=== PATIENT | female | born 1955 | race Caucasian/White ===

== ENCOUNTER 2016-07-27 15:20 | Inpatient (IN) | payer OTHER ==
--- NOTE | 2016-07-27 15:44 | EDPHY ---
H & P Stated Complaint: depression not suicidal off meds-hx depression n bipolar Source: Patient - Personal History Current Tetanus/Diphtheria Vaccine: Unsure Current Tetanus Diphtheria and Acellular Pertussis (TDAP): Unsure - Medical/Surgical History Hx Asthma: No Hx Chronic Respiratory Disease: No Hx Diabetes: No Hx Cardiac Disease: No Hx Renal Disease: No Hx Cirrhosis: No Hx Alcoholism: No Hx HIV/AIDS: No Hx Splenectomy or Spleen Trauma: No Other PMH: depression. suicide attempt 07/01 - Social History Smoking Status: Never smoked HPI/ROS: HPI CHIEF COMPLAINT: Depression HISTORY OF PRESENT ILLNESS: This patient very pleasant 61-year-old female, significant past medical history for depression and bipolar disorder, presents emergency room with her for worsening depression. Patient states that she had a recent suicide attempt with taking benzos and alcohol few weeks ago she was hospitalized at [facility] for this 5 days. She started a new medication for her Prozac. She is to be on lithium and Tegretol no longer is. She tells me that the Prozac is causing her to have worsening depression feeling anxious. She presents emergency room with her at bedside and would like to be hospitalized inpatient psychiatrically for worsening depression. No current SI. Upon arrival here in emergency room she has a flat affect, appears depressed. Past Medical History: Bipolar disorder, depression Past Surgical History: No recent surgery Social History: Denies daily use of drugs alcohol tobacco products, retired, is a physician at bedside. Family History: Noncontributory ROS REVIEW OF SYSTEMS: A comprehensive 10 point review of systems is otherwise negative aside from elements mentioned in the history of present illness. Exam Constitutional appears well nontoxic, triage nursing summary reviewed, vital signs reviewed, awake/alert. Eyes normal conjunctivae and sclera, EOMI, PERRLA. HENT normal inspection, atraumatic, moist mucus membranes, no epistaxis, neck supple/ no meningismus, no raccoon eyes. Respiratory clear to auscultation bilaterally, normal breath sounds, no respiratory distress, no wheezing. Cardiovascular rate normal, regular rhythm, no murmur, no edema, distal pulses normal. Gastrointestinal soft, non-tender, no rebound, no guarding, normal bowel sounds, no distension, no pulsatile mass. Genitourinary no CVA tenderness. Musculoskeletal no midline vertebral tenderness, full range of motion, no calf swelling, no tenderness of extremities, no meningismus, good pulses, neurovascularly intact. Skin pink, warm, & dry, no rash, skin atraumatic. Neurologic awake, alert and oriented x 3, AAOx3, moves all 4 extremities equally, motor intact, sensory intact, CN II-XII intact, normal cerebellar, normal vision, normal speech. Psychiatric flat affect, depressed Heme/Lymph/Immune no lymphadenopathy. Differential Diagnosis: Includes but is not limited to in a particular order, severe depression, bipolar disorder with depression, medication adverse effect, worsening depression on Prozac x3 weeks, need for inpatient psychiatric hospitalization for stabilization of mood disorder depression. Medical Decision Making: Plan for this patient IV establishment, blood draw for medical clearance, IV Ativan for acute anxiety. Patient is voluntary at this time no need for M1 hold. Not suicidal. Wants help. Will need mental health evaluation. Re-evaluation: 1951: Patient has been evaluated by KIRK Obregon, recommend inpatient psychiatric hospitalization. Patient voluntary. Reason for admission depression severe. patient signed over to Dr. Barrera at 9pm. Plan for admission for Depression. ( Chuckie Melgar) Constitutional: Initial Vital Signs Temperature (C) 36.5 C 07/27/16 15:25 Heart Rate 109 H 07/27/16 15:25 Respiratory Rate 16 07/27/16 15:25 Blood Pressure 154/91 H 07/27/16 15:25 O2 Sat (%) 96 07/27/16 15:25 O2 Delivery Mode Room Air Allergies/Adverse Reactions: No Known Allergies Allergy (Unverified 07/27/16 15:23) Home Medications: Medication Instructions Recorded Levothyroxine [Synthroid 50 mcg 50 mcg PO DAILY06 07/27/16 (*)] MIRTAZAPINE [Remeron 7.5 mg] 7.5 mg PO HS 07/27/16 OLANZapine [Zyprexa] 10 mg PO HS 07/27/16 hydrOXYzine HCL [Hydroxyzine HCl] 50 mg PO HS PRN 07/27/16 Medical Decision Making ED Course/Re-evaluation: 9:20 p.m. patient has been evaluated and placed on an M1 hold. They will begin looking for psychiatric placement. 11:00 p.m. care transferred to Dr. Flores. (Edward Barrera) [address] Barrera pending transfer to [address] [place] [address]. 0230 patient has been accepted to [address] [place] [address] ej michel. I have completed the EMTALA. (Gordo Flores) - Data Points Laboratory Results: Laboratory Results 07/27/16 16:10 07/27/16 16:10 07/27/16 07/27/16 07/27/16 17:05 16:10 16:10 WBC 7.95 10^3/uL 10^3/uL (3.80-9.50) RBC 4.53 10^6/uL 10^6/uL (4.18-5.33) Hgb 14.5 g/dL g/dL (12.6-16.3) Hct 39.5 % % (38.0-47.0) MCV 87.2 fL fL (81.5-99.8) MCH 32.0 pg pg (27.9-34.1) MCHC 36.7 g/dL g/dL (32.4-36.7) RDW 12.7 % % (11.5-15.2) Plt Count 346 10^3/uL 10^3/uL (150-400) MPV 9.6 fL fL (8.7-11.7) Neut % (Auto) 61.5 % % (39.3-74.2) Lymph % (Auto) 25.8 % % (15.0-45.0) [place] % (Auto) 11.8 % % (4.5-13.0) Eos % (Auto) 0.3 % L % (0.6-7.6) Baso % (Auto) 0.1 % L % (0.3-1.7) Nucleat RBC Rel Count 0.0 % % (0.0-0.2) Absolute Neuts (auto) 4.89 10^3/uL 10^3/uL (1.70-6.50) Absolute Lymphs (auto) 2.05 10^3/uL 10^3/uL (1.00-3.00) Absolute Monos (auto) 0.94 10^3/uL H 10^3/uL (0.30-0.80) Absolute Eos (auto) 0.02 10^3/uL L 10^3/uL (0.03-0.40) Absolute Basos (auto) 0.01 10^3/uL L 10^3/uL (0.02-0.10) Absolute Nucleated RBC 0.00 10^3/uL 10^3/uL (0-0.01) Immature Gran % 0.5 % % (0.0-1.1) Immature Gran # 0.04 10^3/uL 10^3/uL (0.00-0.10) Sodium 130 mEq/L L mEq/L (134-144) Potassium 3.3 mEq/L L mEq/L (3.5-5.2) Chloride 97 mEq/L mEq/L (97-110) Carbon Dioxide 18 mEq/l L mEq/l (22-31) Anion Gap 15 mEq/L mEq/L (8-16) BUN 5 mg/dL L mg/dL (7-23) Creatinine 0.5 mg/dL L mg/dL (0.6-1.0) Estimated GFR > 60 Glucose 178 mg/dL H mg/dL (70-100) Calcium 9.9 mg/dL mg/dL (8.5-10.4) Salicylates < 1.0 mg/dL L mg/dL (2.0-20.0) Urine Opiates Screen NEGATIVE (NEGATIVE) Acetaminophen < 10 mcg/mL L mcg/mL (10.0-30.0) Urine Barbiturates NEGATIVE (NEGATIVE) Ur Phencyclidine Scrn NEGATIVE (NEGATIVE) Ur Amphetamine Screen NEGATIVE (NEGATIVE) U Benzodiazepines Scrn NEGATIVE (NEGATIVE) Urine Cocaine Screen NEGATIVE (NEGATIVE) U Marijuana (THC) Screen NEGATIVE (NEGATIVE) Ethyl Alcohol < 10 mg/dL mg/dL (0-10) Medications Given: Discontinued Medications Sodium Chloride (Ns) 1,000 mls @ 0 mls/hr IV ONCE ONE PRN Reason: Wide Open Stop: 07/27/16 16:37 Last Admin: 07/27/16 16:42 Dose: Not Given Lorazepam (Ativan Injection) 1 mg IVP EDNOW ONE Stop: 07/27/16 15:52 Last Admin: 07/27/16 16:18 Dose: Not Given Lorazepam (Ativan) 1 mg PO ONCE ONE Stop: 07/27/16 15:57 Last Admin: 07/27/16 16:17 Dose: 1 mg Departure - Departure Disposition: [facility] IP Clinical Impression: Depression Qualifiers: Depression Type: unspecified Qualified Code(s): F32.9 - Major depressive disorder, single episode, unspecified Condition: Fair Referrals: GRACE BURKETT [Primary Care Provider] - As per Instructions
[2016-07-27] MEDS ORDERED: LORazepam 2 MG/ML INJ IVP ONE (15:51)
[2016-07-27] MEDS ORDERED: LORazepam 1 MG TAB PO ONE (15:56)
[2016-07-27 16:25] LABS: % IMMATURE GRANULYOCYTES 0.5 % (0.0-1.1); ABSOLUTE IMMATURE GRANULOCYTES 0.04 10^3/uL (0.00-0.10); ADD DIFF? NO; ADD MORPH? NO; ADD SCAN? NO; ATYPICAL LYMPHOCYTE FLAG 20 (0-99); FRAGMENT RBC FLAG 0 (0-99); HEMATOCRIT 39.5 % (38.0-47.0); HEMOGLOBIN 14.5 g/dL (12.6-16.3); LEFT SHIFT FLG 0 (0-99); LIPEMIA HEMOLYSIS FLAG 90 (0-99); MEAN CELL HEMOGLOBIN CONCENTR. 36.7 g/dL (32.4-36.7); MEAN CELL VOLUME 87.2 fL (81.5-99.8); MEAN PLATELET VOLUME 9.6 fL (8.7-11.7); PLATELET CLUMPS FLAG 0 (0-99); PLATELET COUNT 346 10^3/uL (150-400); RED BLOOD CELL COUNT 4.53 10^6/uL (4.18-5.33); RED CELL DISTRIBUTION WIDTH 12.7 % (11.5-15.2)
[2016-07-27 16:30] LABS: ANION GAP 15 mEq/L (8-16); CALCIUM 9.9 mg/dL (8.5-10.4); CARBON DIOXIDE 18 mEq/l (22-31); CHLORIDE 97 mEq/L (97-110); CREATININE 0.5 mg/dL (0.6-1.0); ETHANOL SERUM < 10 mg/dL (0-10); GLOMERULAR FILTRATION RATE > 60; GLUCOSE 178 mg/dL (70-100); POTASSIUM 3.3 mEq/L (3.5-5.2); SALICYLATE < 1.0 mg/dL (2.0-20.0); SODIUM 130 mEq/L (134-144)
[2016-07-27] MEDS ORDERED: NS 1,000 ML IV ONE (16:36)
[2016-07-28] MEDS ORDERED: NICOTINE POLACRILEX 2 MG GUM B PRN (02:20)
[2016-07-28] MEDS ORDERED: ACETAMINOPHEN 325 MG TAB PO PRN (02:20)
[2016-07-28] MEDS ORDERED: MAGNESIUM HYDROXIDE 30 ML UDCUP PO PRN (02:20)
[2016-07-28] MEDS ORDERED: MAG HYDROX/AL HYDROX/SIMETH 30 ML UDCUP PO PRN (02:20)
[2016-07-28] MEDS ORDERED: OLANZapine DISINTEGR 10 MG TAB ONE (04:13)
[2016-07-28] MEDS ORDERED: LORazepam 0.5 MG TAB ONE (04:13)
[2016-07-28] MEDS: LORazepam 0.5 MG TAB PO PRN ×2 (04:28→20:15)
[2016-07-28] MEDS: OLANZapine DISINTEGR 10 MG TAB PO PRN ×2 (04:28→20:15)
--- NOTE | 2016-07-28 15:22 | BCON ---
[f rep st] BEHAVIORAL HEALTH CONSULTATION INTERNAL MEDICINE CONSULTATION DATE OF CONSULTATION: 07/28/2016 REFERRING PHYSICIAN: William Chowdary MD REASON FOR REFERRAL: Medical clearance for inpatient behavioral health stay. HISTORY OF PRESENT ILLNESS: The patient came to the emergency department yesterday with worsening depression. She had had a recent suicide attempt several weeks prior with benzodiazepines and alcohol and had been hospitalized at [facility]. She was begun on Prozac and was feeling anxiety and worsening depression. She was evaluated by the mental health team and admitted for further psychiatric care. She currently is without any acute complaints other than feeling fatigued since she was up very late last night. PAST MEDICAL HISTORY: 1. Depression with suicide attempt on 07/01/2016. 2. Hypothyroidism. 3. Hyponatremia when she was treated with carbamazepine. PAST SURGICAL HISTORY: She has had a hysterectomy. MEDICATIONS: Prior to admission. It is unclear if she has been compliant. She reported that she was tried on oxcarbazepine last week. Her most recent home medication list is as follows 1. hydroxyzine 50 mg at bedtime p.r.n. 2. Olanzapine 10 mg p.o. at bedtime. 3. Mirtazapine 7.5 mg p.o. at bedtime. 4. Levothyroxine 50 mcg p.o. daily. ALLERGIES: There are no known drug allergies. SOCIAL HISTORY: She is . She lives with her . She has adult children. She has worked in the past as a counselor. She is a nonsmoker and uses alcohol occasionally. FAMILY HISTORY: Noncontributory. REVIEW OF SYSTEMS: She denies thirst, dry mouth, excessive water intake or excessive urination. She denies headache, vision changes, weakness, numbness or tingling of the extremities. She denies chest pain or palpitations, fevers or chills, recent weight change, nausea, vomiting, constipation or diarrhea. Otherwise, a 10-point review of systems is negative. PHYSICAL EXAM: VITAL SIGNS: Blood pressure is 131/58, heart rate this morning at 4:10 a.m. was 109, respiratory rate was 14, oxygen saturation was 94% on room air, temperature was 36.5 degrees centigrade. Her weight is 70.3 kg for a body mass index of 30.3. GENERAL: This is an overweight-appearing woman who appears her chronologic age, cooperative and in no acute distress. HEENT: Extraocular movements are intact. Pupils are equal, round, and reactive to light. Mucous membranes are moist. Dentition is in good condition. NECK: Supple. HEART: There is regular rate and rhythm with no murmurs, rubs, or gallops. LUNGS: Clear to auscultation bilaterally. ABDOMEN: Soft, nontender , nondistended with normoactive bowel sounds. EXTREMITIES: There is no cyanosis, clubbing, or edema. NEUROLOGIC: She is alert and oriented x3. Cranial nerves 2-12 are grossly intact. There is no focal weakness and sensation is intact to light touch. LABORATORY STUDIES: Drawn in the emergency department. CBC was overall within normal limits. Serum chemistry revealed a low sodium and a low potassium at 130. and 3.3. Carbon dioxide was also low at 18. BUN and creatinine were low at 5 and 0.5. Glucose was elevated at 178, but this was at 1610 and was likely not fasting. Toxicology screen in the serum was negative for salicylates, acetaminophen or ethyl alcohol and in the urine was negative for any substances of abuse. ASSESSMENT/RECOMMENDATIONS: 1. Mental health issues. Pending further evaluation and management per Psychiatry and the mental health team. 2. Hyponatremia of unclear etiology. Possibly a continuing effect of her oxcarbazepine therapy with which she was treated last week. I will repeat a basic metabolic profile in the morning as well as other tests to investigate the etiology of the low sodium with a urine and serum osmolarity and a urine sodium. 3. Hypothyroidism. TSH was checked during her recent stay at [facility] and was normal, so she is on an appropriate dose of thyroid hormone replacement. 4. I see no medical contraindications to the patient's continued stay in the inpatient behavioral health unit or to any psychiatric medications or procedures. Thank you very much for including me in the care of this patient and please do not hesitate to contact me or the hospitalist service should there be need for further medical evaluation. /[id number]/MODL MTDD
[2016-07-29] MEDS: LEVOTHYROXINE 75 MCG TAB PO SCH (09:08)
--- NOTE | 2016-07-29 09:44 | BAPA ---
[f rep st] ADMISSION PSYCHIATRIC ASSESSMENT PATIENT IDENTIFICATION: The patient presents as a 61-year-old, , white female, who lives with her ; she is a mother of 2 adult children; she is retired; she is currently an identified psychiatric outpatient in the community , followed by a prescriber, Suzie Medina and a psychotherapist; she was admitted to [address] [place] [address] for complaints of a depressive crisis including suicidal ideation; she was deemed to be high risk for self-harm and admitted to [address] [place] [address] on an M1 hold. CHIEF COMPLAINT: "I just got out of [facility] and I'm feeling worse; I feel as if I am going to jump out of my skin and I can't keep living like this any more," stated to TLC in the emergency room prior to admission. HISTORY OF PRESENT ILLNESS: The patient reports a chronic history of a primary Mood Disorder. She was diagnosed 11 years ago as suffering from a Bipolar Disorder, Type 1. The patient also has a history of long-standing alcohol abuse. Details of her past history as referenced below. Patient received a second DUI 2 years ago at age 59. Since that time, she has been abstinent, attending individual and group sobriety treatment, court ordered. She sees a jailer/training officer monthly, and provides 8 random urines per month, as requested. In parallel, the patient has continued medication management treatment from her [facility] prescriber The patient discontinued her long- standing Seroquel regimen at 300 mg h.s., approximately 1 year ago, secondary to developing bilateral ankle tremors, question restless legs syndrome, ? TDK. She was tried on multiple medications, including lithium which created GI side effects, Tegretol which lowered her sodium, and Lamictal which she tolerated, but was discontinued at [facility] where she was hospitalized approximately 1 month ago following a suicide attempt by overdose. The patient states she also has tried multiple other medications including Depakote and Abilify among others. Over the past 2 years, while patient has been sober, she has continued to experience primary mood instability with a preponderance of depression over the last 18 months. Her syndromal depression did reach crisis proportions, resulting in her first suicide attempt by overdosing on Klonopin and alcohol. The patient states this was the only alcohol she has used in the past 2 years. She was found by her physician in a drowsy, but arousable state after the overdose. She was medically cleared in a local emergency room and sent on to [facility] for 5-week inpatient stay. She reports that her Lamictal was discontinued, and she was placed on Prozac and Trileptal. Following discharge 3 weeks ago, the patient states her depression was unimproved at discharge, and has worsened over the past 3 weeks. Her prescriber discontinued the Trileptal because of a diminished sodium level. The patient discontinued her Prozac 3 days prior to this admission as she was feeling intensification of her depressive symptoms including increased anxiety. The patient self-referred to the emergency room in the company of her , as she was feeling a crisis of despair, and return of suicidal thinking. In the emergency room, the patient was medically cleared. Emergency room physician identified constricted and flattened affect, as well as acutely dysphoric mood on an otherwise unremarkable physical exam. She also presented with acute anxiety, and was given Ativan 1 mg IV for calming affect. Lab screens included chemistries, CBC, toxic screen, and blood alcohol level. Significant findings included diminished BUN at 5, elevated glucose 178, diminished CO2 at 18, diminished sodium at 130, and decreased potassium at 3.3. She was seen in consultation by [facility] and presented as anxious, oriented x4, cooperative, and conversant. She described the persistent suicidal ideation, as well as provided some of the database in this narrative as reference. She was deemed to be at acute risk of self-harm and unable to manage safely in the community. She was sent on for admission to on an M1 hold. PSYCHIATRIC HISTORY: Patient's initial psychiatric workup occurred in the context of a dual service rehab program she attended after her first DUI at age 50. That workup concluded the patient suffered from a Bipolar Disorder, Type 1. She was begun on Seroquel dosing, which was continued for the next 10 years prescribed by her PCP, as referenced above. She also engaged in psychotherapy on different occasions over the 9 years following the first conviction for DUI. She has not engaged in psychotherapy for the past 2 years, but has continued medication management services. After the onset of bilateral ankle tremors 2 years ago, PCP referred the patient to her psychiatric nurse practitioner. Seroquel was then discontinued, and the patient placed on a medley of psychiatric medications as referenced in the present illness. Most recently, the patient took prescribed Prozac and Trileptal, which was begun during the inpatient course in [facility]. Both of these medications were discontinued prior to this admission, as referenced in the HPI. MEDICAL HISTORY: No active medical problems. S/P hypothyroidism. ALLERGIES: Patient has no known medication, food, or environmental allergies. REVIEW OF SYSTEMS: Negative medical review of systems. SUBSTANCE ABUSE HISTORY: The patient was born into a family origin in which her father was actively alcoholic. She states she took her first drink at age 13, but drank with control until her mid 30s. She states she and her third were social drinkers. However, she states her intake gradually increased to the level of drinking to intoxication most days of the week into her 40s. Following her first DUI conviction at age 50, the patient completed a 28-day rehab program and then engaged in court-ordered outpatient sobriety groups and individual counseling. She states she remained abstinent from ages 50 to 54. The patient then felt she could drink with control, but again her drinking pattern gradually progressed to an addictive level. Her second DUI occurred at age 59. She again engaged in a court-ordered outpatient sobriety treatment consisting of treatment groups and individual meetings, one of each daily. She has remained abstinent through to the present time, other than for the overdose on alcohol and Klonopin 4 weeks ago in a suicide attempt. The patient also meets with a jailer/training officer monthly, as directed by the Court. LEGAL HISTORY: Two DWIs at ages 50 and 59, as referenced above. Currently on probation following the second DUI conviction. PERSONAL HISTORY/FAMILY HISTORY: The patient was born into a family origin consisting of parents and 2 older brothers. The patient's father was actively alcoholic during patient's childhood and adolescence. While she denied a history of trauma or abuse, she does state family life was constrained for all family members including her because of father's severe alcoholism. The patient left home at age 15 to a 17-year-old, who had enlisted in the [employer]. She states she was motivated to leave living in the home with her alcoholic father. The patient obtained her GED while living with her enlisted in [place]. The marriage lasted 2 years, and ended in divorce. Patient states this was because her developed another relationship to a woman he eventually . Patient procreated her first child at age 16 and became a single parent at time of divorce. She states life was stable as she enjoyed parenting, as well as working and living in an independent manner. She for the second time at age 22, and remained for 5 years, again ending the marriage in divorce secondary to her 's infidelity. She did have her second child at age 24 during this marriage. She again became a single parent with 2 children.and again worked successfully as well. As stated , she enjoyed raising her children. She for the third time at age 29. This marriage has continued to the present time. She states her is her best friend and the marriage has been very successful. He is a physician, who has specialized after internal medicine training to become an addictions specialist, works full-time for an agency in [place] providing methadone and other treatment services to addictive patients. Patient went to college part-time and obtained her BA and MA degrees at the [employer]. Her graduate degree was in counseling. 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 Patient retired from all employment 2 years ago, likely secondary to her psychiatric and alcoholic instability. ADMISSION MENTAL STATUS EXAM: The patient presents as an adult female, looking her stated age. She is well-kempt, has normal gait and station. She engages cooperatively and is conversant during the first session. Her mood state is moderately dysphoric, range of affect contracted and expression of affect constricted. Her thought process is reality focused with no evidence for psychosis. The patient denies current suicidal ideation, and expresses a positive attitude about her being admitted as an inpatient. She is openly disclosing and provides most of the details referenced in the evaluation. She appears to be of average intelligence referencing her vocabulary and language syntax. She is alert and oriented x4. The patient's impulse control is intact , judgment fair, and insight fair, as presented in the session. Her thought process is linear and goal-focused. She describes her syndromal and treatment history, but offers little insight on circumstantial or dynamic stressors for her depression. She states her depression has been preponderant, and increasingly so over the last 18 months. Patient's ADL functions are intact and appropriate for her age. Session focuses on staging her mental status, obtaining a syndromal and treatment history, and overview of lifelong history. She states all her family relationships are well and stable, including her 2 children, and her relationship to her . FORMULATION: The patient presents as a 61-year-old, , white female with chronic problems associated with primary mood instability diagnosed as Bipolar Disorder, type 1, eleven years ago. Patient also has a chronic history for addictive use of alcohol. She has been sober for the past 2 years following a second DUI conviction at age 59. She has experienced a preponderance of syndromal depression for 18 months, which has intensified through to the current time. She has attempted suicide once on July 01 by overdosing on Klonopin and alcohol. She completed a brief inpatient hospitalization, her first hospitalization, at [facility], discharging 3 weeks ago on Prozac and Trileptal. Both of these medications have been discontinued as ineffective , as well as possibly contributing to her low sodium (130), and akathisia. Inpatient treatment will focus on expediting history of her medication responsiveness, as well as engaging her actively via the care plan to utilize the milieu and group therapies. Will expand the collateral base by contacting her prescriber and . We will search for the presence of any dynamic or circumstantial stressors that might be related to this 18 month course of worsening depression. Primary goals will include stabilizing her mental status sufficient for discharge, formulating a diagnosis to inform a more definitive discharge plan. ADMISSION DIAGNOSTIC IMPRESSION: [place] I: 1. Bipolar Disorder, type 1: Extended depressive crisis including a suicide attempt by overdose 4 weeks ago and present exacerbation. 2. Alcohol Use Disorder: Chronic history; abstinent for the past 2 years following driving under the influence conviction and court-ordered treatment. [place] II: Deferred. [place] III: No active medical problems. S/P hypothyroidism, stable on Synthroid 75 mcg daily. [place] IV: Inadequate response to psychoactive medications; rule out dynamic and/ or circumstantial stressors. [place] V: Admission Global Assessment of Functioning 35. INITIAL TREATMENT PLAN: 1. Nursing: Completed admission assessment; monitor patient for safety; reinforce compliance with cares and medications; orient patient to the unit milieu and group program, and encourage participation. 2. Psychiatry: Completed admission assessment; provide daily E/M contacts, who complete diagnostic formulation, assess and manage psychoactive medication needs, provide reintegrated psychotherapeutic contacts, ally patient to definitive discharge plan with links in place at discharge. 3. Clinical Coordinator: Daily visits for intake in data expansion including contact of relevant collaterals; identify discharge resources for patient links for patient to follow up with links in place at discharge. 4. Admission medical consultation: Pending. 5. Medications: Will contact [facility] prescriber to clarify medication response history prior to establishing a first phase medication trial. 6. Prioritized inpatient goals: Stabilize mental status sufficient for discharge: Complete diagnostic workup to inform definitive discharge plan; link patient to discharge resources and ally patient with followup treatment post discharge. /[id number]/MODL MTDD
[2016-07-29 11:30] LABS: ANION GAP 10 mEq/L (8-16); CALCIUM 9.7 mg/dL (8.5-10.4); CARBON DIOXIDE 24 mEq/l (22-31); CHLORIDE 103 mEq/L (97-110); CREATININE 0.7 mg/dL (0.6-1.0); GLOMERULAR FILTRATION RATE > 60; GLUCOSE 63 mg/dL (70-100); POTASSIUM 4.4 mEq/L (3.5-5.2); SODIUM 137 mEq/L (134-144)
--- NOTE | 2016-07-29 13:55 | SOAPPROG ---
TONY Progress Note Assessment/Plan: Assessment: Plan: 07/29/16 09;15 DAY UPDATE/EXAM: Nursing reports pt slept 4-5 hours, is observably depressed but denies SI, is c/w cares and meds and has a presence in the milieu and attending groups selectively/ on direct exam pt expands the data base regarding sx and rx history a/w psychiatric and sobriety issues; responds well to clarification and support in the session; dysphoric mood and constrict/blunted affect present ; pt denies current SI on inquiry; cannot give telephone number for prescriber ASSESSMENT/PLAN: residual depressive acuity; allying with initial therapeutic engagement/ am trying to contact pt's community prescriber before initiating medication trial; CP d/w Nursing in Rounds Objective: Vital Signs Temp Pulse Resp BP Pulse Ox 36.5 C 112 H 12 126/64 H 93 07/29/16 06:00 07/29/16 06:00 07/29/16 06:00 07/29/16 06:00 07/29/16 06:00 Laboratory Results 07/29/16 06:25 ICD10 Worksheet Patient Problems: Problems Problem Status Onset Depression Acute
[2016-07-30] MEDS: LEVOTHYROXINE 75 MCG TAB PO SCH (06:07)
--- NOTE | 2016-07-30 13:00 | SOAPPROG ---
TONY Progress Note Assessment/Plan: Assessment: Plan: 07/29/16 09;15 UPDATE/EXAM: Nursing reports pt slept 4-5 hours, is observably depressed but denies SI, is c/w cares and meds and has a presence in the milieu and attending groups selectively/ on direct exam pt expands the data base regarding sx and rx history a/w psychiatric and sobriety issues; responds well to clarification and support in the session; dysphoric mood and constrict/blunted affect present ; pt denies current SI on inquiry; cannot give telephone number for prescriber ASSESSMENT/PLAN: residual depressive acuity; allying with initial therapeutic engagement/ am trying to contact pt's community prescriber before initiating medication trial; CP d/w Nursing in Rounds 07/30/16 13:30 day UPDATE/EXAM: Nursing reports pt slept better but continues to c/o brkthru anxiety and dysphoria; is c/w meds and cares and is visible in milieu and attending groups/ on direct exam pt is cooperative and conversant; does evidence anxiety with visible motoric agitation; facies depressed and mood dysphoric; denies SI but does complain of significant affective pain; meds discussed with implementation as referenced. 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 He was unable to identify any dynamic stessors but also did not appear to be psychologically minded but is loving and supportive to his . ASSESSMENT/PLAN: residual anxious/depressive acuity/ will start pt on [place] ER as she was not exposed to long-acting [place] in previous outpt trial when she responded but stopped with GI side-effects; will also begin trial of Zyprexa for anxiolytic and antidepressant effects which apparently did occur in previous trial; will use Ativan prn short-term for anxiolytic relief as needed - see current orders; CP d/w Nursing in Rounds Objective: Vital Signs Temp Pulse Resp BP Pulse Ox 36.7 C 52 L 16 146/83 H 95 07/30/16 06:00 07/30/16 06:00 07/30/16 06:00 07/30/16 06:00 07/30/16 06:00 Laboratory Results 07/29/16 06:25 ICD10 Worksheet Patient Problems: Problems Problem Status Onset Depression Acute
[2016-07-30] MEDS ORDERED: LORazepam 1 MG TAB PO ONE (13:28)
[2016-07-30] MEDS: OLANZapine 2.5 MG TAB PO SCH ×2 (16:01→20:03)
[2016-07-30] MEDS: LITHIUM CARBONATE ER 300 MG TAB PO SCH (20:03)
[2016-07-31] MEDS: LORazepam 0.5 MG TAB PO PRN ×3 (07:02→19:10)
[2016-07-31] MEDS: OLANZapine 2.5 MG TAB PO SCH ×3 (08:01→19:10)
[2016-07-31] MEDS: LEVOTHYROXINE 75 MCG TAB PO SCH (10:54)
--- NOTE | 2016-07-31 13:10 | SOAPPROG ---
SOAP Progress Note Assessment/Plan: Assessment: 61yo CF with hx BMD and SI 07/31/16 13:04 per staff, slept 9.5 hrs. attending groups. on interview, pt reports no s/e to recent med changes. tolerating [place] ER and low dose zyprexa well. states responded well to these in past and had not had any GI distress with [place] in ER formulation which she started last night. Skipped art group today, "it's the 1st one I skipped, but I really don't like the art group". Otherwise reports attending groups. No physical c/o. MSE: casually dressed, good eye contact, cooperative bx, nml speech rate/vol. mood "fine", affect restricted but appropriate, denied any SI or psychotic sxs. no thoughts to harm others. no hallucinations. thoughts linear and goal- directed. i/j both seem intact. Plan: cont current meds. signed in vol yesterday. d/c suicide precautions. Objective: Vital Signs Temp Pulse Resp BP Pulse Ox 36.8 C 103 H 16 133/82 H 97 07/31/16 06:10 07/31/16 06:10 07/31/16 06:10 07/31/16 06:10 07/31/16 06:10 Laboratory Results 07/29/16 06:25 - Time Spent With Patient Time Spent With Patient: 25min - Pending Discharge Pending Discharge Within 24 Hours: No Pending Discharge Within 48 Hours: No ICD10 Worksheet Patient Problems: Problems Problem Status Onset Depression Acute
[2016-07-31] MEDS: LITHIUM CARBONATE ER 300 MG TAB PO SCH (19:11)
[2016-08-01] MEDS: OLANZapine 2.5 MG TAB PO SCH ×3 (08:28→20:09)
[2016-08-01] MEDS: LORazepam 0.5 MG TAB PO PRN ×2 (08:29→14:25)
[2016-08-01] MEDS: LEVOTHYROXINE 75 MCG TAB PO SCH (08:29)
--- NOTE | 2016-08-01 18:10 | SOAPPROG ---
SOAP Progress Note Assessment/Plan: Assessment: 61yo CF with hx BMD and SI 07/31/16 13:04 per staff, slept 9.5 hrs. attending groups. on interview, pt reports no s/e to recent med changes. tolerating [place] ER and low dose zyprexa well. states responded well to these in past and had not had any GI distress with [place] in ER formulation which she started last night. Skipped art group today, "it's the 1st one I skipped, but I really don't like the art group". Otherwise reports attending groups. No physical c/o. MSE: casually dressed, good eye contact, cooperative bx, nml speech rate/vol. mood "fine", affect restricted but appropriate, denied any SI or psychotic sxs. no thoughts to harm others. no hallucinations. thoughts linear and goal- directed. i/j both seem intact. Plan: cont current meds. signed in vol yesterday. d/c suicide precautions. 08/01/16 18:59 per staff, pt slept well but awakened quite anxious. took prn. still with incr pulse/BP but less anxious. looking fwd to H visiting today on interview, pt reports waking up anxious each of last 2 mornings. thinks b/c not in own bed at home. had good visit with her family today. daughter and came. feels tired today. reports attending groups but skipping art group b/c doesn't like it. denied current SI. prn Ativan helped anxiety. Denied med side effects. denied other physical c/o. MSE: casually dressed, lying in bed, good eye contact, cooperative bx, nml speech rate, soft-spoken. mood "content", affect constricted, denied any SI or psychotic sxs. no thoughts to harm others. no hallucinations. thoughts linear and goal-directed. still feeling depressed but overall better than on admission. i/j both seem intact. PLAN: continue [place] ER 300mg qhs, Zyprexa 2.5mg TID and prn ativan. Objective: Vital Signs Temp Pulse Resp BP Pulse Ox 36.7 C 117 H 12 133/85 H 99 08/01/16 10:31 08/01/16 10:45 08/01/16 10:45 08/01/16 10:45 08/01/16 10:45 Laboratory Results 07/29/16 06:25 ICD10 Worksheet Patient Problems: Problems Problem Status Onset Depression Acute
[2016-08-01] MEDS: LITHIUM CARBONATE ER 300 MG TAB PO SCH (20:09)
[2016-08-02 06:43] VITALS: RESP 16
[2016-08-02] MEDS: LORazepam 0.5 MG TAB PO PRN (09:05)
[2016-08-02] MEDS: OLANZapine 2.5 MG TAB PO SCH ×3 (09:06→20:30)
[2016-08-02] MEDS: LEVOTHYROXINE 75 MCG TAB PO SCH (09:06)
[2016-08-02] MEDS: LITHIUM CARBONATE ER 300 MG TAB PO SCH (20:29)
[2016-08-02] MEDS ORDERED: OLANZapine 5 MG TAB PO PRN (21:57)
--- NOTE | 2016-08-02 22:08 | SOAPPROG ---
SOAP Progress Note Assessment/Plan: Assessment: 61yo CF with hx BMD and SI 07/31/16 13:04 per staff, slept 9.5 hrs. attending groups. on interview, pt reports no s/e to recent med changes. tolerating [place] ER and low dose zyprexa well. states responded well to these in past and had not had any GI distress with [place] in ER formulation which she started last night. Skipped art group today, "it's the 1st one I skipped, but I really don't like the art group". Otherwise reports attending groups. No physical c/o. MSE: casually dressed, good eye contact, cooperative bx, nml speech rate/vol. mood "fine", affect restricted but appropriate, denied any SI or psychotic sxs. no thoughts to harm others. no hallucinations. thoughts linear and goal- directed. i/j both seem intact. Plan: cont current meds. signed in vol yesterday. d/c suicide precautions. 08/01/16 18:59 per staff, pt slept well but awakened quite anxious. took prn. still with incr pulse/BP but less anxious. looking fwd to H visiting today on interview, pt reports waking up anxious each of last 2 mornings. thinks b/c not in own bed at home. had good visit with her family today. daughter and came. feels tired today. reports attending groups but skipping art group b/c doesn't like it. denied current SI. prn Ativan helped anxiety. Denied med side effects. denied other physical c/o. MSE: casually dressed, lying in bed, good eye contact, cooperative bx, nml speech rate, soft-spoken. mood "content", affect constricted, denied any SI or psychotic sxs. no thoughts to harm others. no hallucinations. thoughts linear and goal-directed. still feeling depressed but overall better than on admission. i/j both seem intact. PLAN: continue [place] ER 300mg qhs, Zyprexa 2.5mg TID and prn ativan. 08/02/16 22:06 per staff, pt slept 9hr. seems to feel a bit overstimulated with current milieu , understandably. requested extra prn Ativan today. pt reports depression is 5/10. talked some of her suicide attempt by OD on Klonopin. was surprised she woke up. states getting to this point of feeling suicidal and acting on it impulsively felt scary to her. is glad the attempt was unsuccessful. states she has since been focused on talking with people more and taking more care of her own mental health. reports still with AM anxiety. sometimes again in mid-day. didn't want prn zyprexa b/c it was 10mg. doesn't think 2.5mg zyprexa TID is really doing anything. denies s/e to lithium 300mg extended release. MSE: calm, cooperative, lying in bed. nml speech rate, soft-spoken, good eye contact. mood "stable", affect calm, denied any SI or psychotic sxs. PLAN: agreed to increase [place] to 450mg HS will dc prn zyprexa 10mg, change to 5mg bid prn add Hydroxyzine 25-50mg tid prn anxiety and encouraged trying this instead of Ativan. *of note, unfortuately by the time this note completed and orders being put in, pt had already taken HS meds and is sound asleep. will change meds for tomorrow. Objective: Vital Signs Temp Pulse Resp BP Pulse Ox 36.8 C 92 16 133/71 H 96 08/02/16 06:00 08/02/16 06:00 08/02/16 06:00 08/02/16 06:00 08/02/16 06:00 Laboratory Results 07/29/16 06:25 - Time Spent With Patient Time Spent With Patient: 25min - Pending Discharge Pending Discharge Within 24 Hours: No Pending Discharge Within 48 Hours: No ICD10 Worksheet Patient Problems: Problems Problem Status Onset Depression Acute
[2016-08-02] MEDS ORDERED: hydrOXYzine HCL 25 MG TAB PO PRN (22:18)
[2016-08-03] MEDS: LEVOTHYROXINE 75 MCG TAB PO SCH (09:33)
[2016-08-03] MEDS: OLANZapine 2.5 MG TAB PO SCH (09:33)
[2016-08-03] MEDS: LORazepam 0.5 MG TAB PO PRN ×2 (09:33→15:04)
[2016-08-03] MEDS: OLANZapine 5 MG TAB PO SCH (20:31)
[2016-08-03] MEDS ORDERED: LITHIUM CARBONATE ER 450 MG TAB PO SCH (21:00)
[2016-08-04 06:39] VITALS: BP 143/75; PULSE 91; TEMP 98.1; O2SAT 96
--- NOTE | 2016-08-04 07:05 | SOAPPROG ---
TONY Progress Note Assessment/Plan: Assessment: Plan: 07/29/16 09;15 DAY UPDATE/EXAM: Nursing reports pt slept 4-5 hours, is observably depressed but denies SI, is c/w cares and meds and has a presence in the milieu and attending groups selectively/ on direct exam pt expands the data base regarding sx and rx history a/w psychiatric and sobriety issues; responds well to clarification and support in the session; dysphoric mood and constrict/blunted affect present ; pt denies current SI on inquiry; cannot give telephone number for prescriber ASSESSMENT/PLAN: residual depressive acuity; allying with initial therapeutic engagement/ am trying to contact pt's community prescriber before initiating medication trial; NILSON d/w Nursing in Rounds 07/30/16 13:30 day UPDATE/EXAM: Nursing reports pt slept better but continues to c/o brkthru anxiety and dysphoria; is c/w meds and cares and is visible in milieu and attending groups/ on direct exam pt is cooperative and conversant; does evidence anxiety with visible motoric agitation; facies depressed and mood dysphoric; denies SI but does complain of significant affective pain; meds discussed with implementation as referenced. 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 He was unable to identify any dynamic stessors but also did not appear to be psychologically minded but is loving and supportive to his . ASSESSMENT/PLAN: residual anxious/depressive acuity/ will start pt on Hart[place] ER as she was not exposed to long-acting Hartwell in previous outpt trial when she responded but stopped with GI side-effects; will also begin trial of Zyprexa for anxiolytic and antidepressant effects which apparently did occur in previous trial; will use Ativan prn short-term for anxiolytic relief as needed - see current orders; NILSON d/w Nursing in Rounds 08/03/16 13;00 DAY UPDATE/EXAM: Nursing reports that pt was isolative and experienced brkthru anxiety over past 3 days which was improved partially on combination of Zyprexa and prn Ativan; apparently tolerating Hartwell ER at 300 mg qd with sone decrease in syndromal depression; on direct exam pt presents as relatively calm , cooperative , conversant; does state presence of other agitated patients caused her to withdraw to room; does report some relief in anxiety since using prn Ativan and denies GI side effects since starting Hartwell on 07/30; agrees to extend inpt stay one day to allow further meds changes as referenced and then continue meds trial post DC with psychiatric prescriber; mood with residual dysphoria, denies SI, + about meds changes. ASSESSMENT/PLAN: residual depressive sx and generalized anxiety - partially improved/ will increase Hartwell to 450 mg hs, increase Zyprexa to 5 mg bid, continue prn Ativan; if continues to tolerate Hartwell will increase again before DC tomorrow and reassess use of Ativan Objective: Vital Signs Temp Pulse Resp BP Pulse Ox 36.7 C 91 16 143/75 H 96 08/04/16 06:00 08/04/16 06:00 08/04/16 06:00 08/04/16 06:00 08/04/16 06:00 Laboratory Results 07/29/16 06:25 ICD10 Worksheet Patient Problems: Problems Problem Status Onset Depression Acute
[2016-08-04] MEDS: LORazepam 0.5 MG TAB PO PRN (08:49)
[2016-08-04] MEDS: OLANZapine 5 MG TAB PO SCH (08:49)
[2016-08-04] MEDS: LEVOTHYROXINE 75 MCG TAB PO SCH (09:55)
[2016-08-04] MEDS ORDERED: LITHIUM CARBONATE ER 300 MG TAB PO ONE (11:30)
--- NOTE | 2016-08-04 12:07 | SOAPPROG ---
TONY Progress Note Assessment/Plan: Assessment: Plan: 07/29/16 09;15 DAY UPDATE/EXAM: Nursing reports pt slept 4-5 hours, is observably depressed but denies SI, is c/w cares and meds and has a presence in the milieu and attending groups selectively/ on direct exam pt expands the data base regarding sx and rx history a/w psychiatric and sobriety issues; responds well to clarification and support in the session; dysphoric mood and constrict/blunted affect present ; pt denies current SI on inquiry; cannot give telephone number for prescriber ASSESSMENT/PLAN: residual depressive acuity; allying with initial therapeutic engagement/ am trying to contact pt's community prescriber before initiating medication trial; NILSON d/w Nursing in Rounds 07/30/16 13:30 day UPDATE/EXAM: Nursing reports pt slept better but continues to c/o brkthru anxiety and dysphoria; is c/w meds and cares and is visible in milieu and attending groups/ on direct exam pt is cooperative and conversant; does evidence anxiety with visible motoric agitation; facies depressed and mood dysphoric; denies SI but does complain of significant affective pain; meds discussed with implementation as referenced. 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 He was unable to identify any dynamic stessors but also did not appear to be psychologically minded but is loving and supportive to his . ASSESSMENT/PLAN: residual anxious/depressive acuity/ will start pt on [place] ER as she was not exposed to long-acting [place] in previous outpt trial when she responded but stopped with GI side-effects; will also begin trial of Zyprexa for anxiolytic and antidepressant effects which apparently did occur in previous trial; will use Ativan prn short-term for anxiolytic relief as needed - see current orders; NILSON d/w Nursing in Rounds 08/03/16 13;00 DAY UPDATE/EXAM: Nursing reports that pt was isolative and experienced brkthru anxiety over past 3 days which was improved partially on combination of Zyprexa and prn Ativan; apparently tolerating Pal[place] ER at 300 mg qd with sone decrease in syndromal depression; on direct exam pt presents as relatively calm , cooperative , conversant; does state presence of other agitated patients caused her to withdraw to room; does report some relief in anxiety since using prn Ativan and denies GI side effects since starting Paloma on 07/30; agrees to extend inpt stay one day to allow further meds changes as referenced and then continue meds trial post DC with psychiatric prescriber; mood with residual dysphoria, denies SI, + about meds changes. ASSESSMENT/PLAN: residual depressive sx and generalized anxiety - partially improved/ will increase Paloma to 450 mg hs, increase Zyprexa to 5 mg bid, continue prn Ativan; if continues to tolerate Paloma will increase again before DC tomorrow and reassess use of Ativan 08/04/16 11:54 Discharge Note DAY ' U[DATE/ EXAM: Nursing reports that pt slept well, more present in milieu and groups last 24 hours, appeared calmer and + about upcoming DC/ on direct exam pt presents as affectively including neutral mood, denies SI, states tolerating all meds well; able to overview descriptive improvement; also able to further discuss past and recent history identifying self-medicating use of alcohol, a primary point of tension a/w suicide attempt and her pain in reflecting the pain inflicted on her kids and if she succeeded - relevant issues for her post dc psychotherapy in the community which she intends to focus in these areas; med also discussed in detail; pt stable and ready for DC ASSESSMENT/PLAN: DC this pm HOC to transport pt to [facility] Psychiatry f/u with prescriber, group therapy, and individual therapy with same therapist - dual focussed Resume participation in court-ordered sobriety program DC medications as referenced see Discharge Summary 08/04/16 12:07 Medications: given 30 day supply at DC Generic Name Dose Route Start Last Admin Trade Name Freq PRN Reason Stop Dose Admin Lorazepam 0.5 mg 07/30/16 13:30 08/04/16 08:49 Ativan PO 01/26/17 13:29 0.5 mg Q4HRS PRN Anxiety, Able to Take PO Levothyroxine Sodium 75 mcg 07/31/16 10:00 08/04/16 09:55 Synthroid PO 01/27/17 09:59 75 mcg DAILY@1000 BENJA Olanzapine 5 mg 08/03/16 21:00 08/04/16 08:49 Olanzapine PO 01/30/17 20:59 5 mg BID BENJA Paloma Carbonate 450 mg 08/03/16 21:00 08/03/16 20:31 Eskalith Cr PO 01/30/17 20:59 450 mg HS BENJA Paloma Carbonate 300 mg 08/05/16 09:00 Lithobid PO 02/01/17 08:59 DAILY BENJA Objective: Vital Signs Temp Pulse Resp BP Pulse Ox 36.7 C 91 16 143/75 H 96 08/04/16 06:00 08/04/16 06:00 08/04/16 06:00 08/04/16 06:00 08/04/16 06:00 Laboratory Results 07/29/16 06:25 ICD10 Worksheet Patient Problems: Problems Problem Status Onset Depression Acute
[2016-08-05] MEDS ORDERED: LITHIUM CARBONATE ER 300 MG TAB PO SCH (09:00)
== END 2016-08-04 12:59 | disposition home or self-care (01) | DRG 885 ==
LOC: BBEH 07-28 03:35
PROVIDERS: ADMIT Psychiatry & Neurology Psychiatry; ATTEND Psychiatry & Neurology Psychiatry
DX: F31.30 Bipolar disorder, current episode depressed, mild or moderate severity, unspecified (principal); Z72.89 Other problems related to lifestyle; E87.1 Hypo-osmolality and hyponatremia; E03.9 Hypothyroidism, unspecified
CPT/HCPCS: 80305; G0480